=== PATIENT | female | born 1965 | race African-American/Black ===

== ENCOUNTER 2018-07-11 14:30 | Emergency (ER) | payer SELFPAY ==
[2018-07-11 14:35] VITALS: TEMP 98.9; BMI 27.4
--- NOTE | 2018-07-11 14:47 | PDOC ---
Attending Attestation - HPI HPI: 07/11/18 16:08 The patient is a 53-year-old female with a past medical history significant for HTN and Pre-DM presents to the emergency department with abdominal pain. The patient presents with left sided abdominal pain for the past 2 hours, thats bloating in quality. The patient denies any modifying factor that aggravates or alleviates the pain. The patient reports associated symptoms of nausea and 2 episodes of NBNB vomiting and urinary frequency. The patient reports she had a bowel movement earlier today, denies melena or hematochezia. Denies fever, chills, chest pain, shortness of breath, dysuria, hematuria. Allergies: NKA Social history: No tobacco or recreational drug use reported. Occasional alcohol use reported Surgical history: None recorded. PCP: Not on Staff - Physicial Exam PE: 07/11/18 15:33 GENERAL: Awake, alert, and fully oriented, in no acute distress, appears mildly uncomfortable. ABDOMEN: + mild tenderness to deep palpation of the LUQ. Soft, No guarding, no rebound. No masses - Medical Decision Making 07/11/18 15:34 Documentation prepared by Marika Valentino, acting as medical center representative for Destini Carrion MD. <Marika Valentino - Last Filed: 07/11/18 16:08> - Medical Decision Making 07/11/18 16:12 Pt presents to the ED complaining of the acute onset of L sided abdominal pain two hours ago. very mild tenderness to deep palpation in the LUQ. Will check labs to investigate for UTI, or other systemic infection, pancreatitis, billiary disease. Will treat pain with IV tylelenol. Will consider imaging if pain is intractable or if labs are abnormal. <Destini Carrion - Last Filed: 07/11/18 16:14>
--- NOTE | 2018-07-11 14:50 | PDOC ---
History of Present Illness - General Chief Complaint: Pain Stated Complaint: PAIN Time Seen by Provider: 07/11/18 14:47 - History of Present Illness Initial Comments: Rell Velasquez is a 53yo woman with a PMH of HTN and prediabetes who presents with LLQ abdominal pain that started earlier today. She describes her pain as a 7/10 "bloating" pain. It does not radiate. She initially thought it might be gas and tried drinking tea and taking a hot shower without any relief. She did not take any pain medication. She denies any associated diarrhea, constipation, fever, chills, SOB, or chest pain. Since arrival in the ED, she has had some nausea and an episode of vomiting, but she was eating and drinking without any difficulty yesterday until breakfast this morning. On additional questioning, she endorses urinary urgency for multiple days. She feels that she needs to run to the bathroom but is unable to urinate. She has not had any dysuria or hematuria. She has not had any vaginal bleeding or discharge. She reports that she is in early menopause; her LMP was in March. She has no history of abdominal surgery, kidney stone, recent travel, or new/ unusual foods. Ms Velasquez reports a nearly identical episode with pain on the right side one month ago. She saw several physicians including GI, and workup including an abdominal ultrasound was apparently negative for abnormalities at that time. She decided to present to the ED immediate after the pain occurred this morning so that she could be evaluated while the pain was present. Past History - Past Medical History Allergies/Adverse Reactions: Allergies Allergy/AdvReac Type Severity Reaction Status Date / Time No Known Allergies Allergy Verified 07/11/18 15:01 Home Medications: Ambulatory Orders Amlodipine Besylate [Norvasc -] 5 mg PO DAILY #7 tablet 04/03/14 COPD: No HTN: Yes - Immunization History Immunization Up to Date: No - Suicide/Smoking/Psychosocial Hx Smoking History: Never smoked Have you smoked in the past 12 months: No Hx Alcohol Use: Yes (Occasional) Substance Use Type: Alcohol Review of Systems - Review of Systems Comments:: General: No fevers, no chills, no weight or appetite change, no malaise HEENT: No changes in vision, no changes in hearing, no congestion, no sore throat CV: No chest pain, no palpitations, no LE edema Pulm: No SOB, no cough, no wheezing GI: No change in bowel habits, no melena. +1x episode of vomiting today. +LLQ pain : +Frequency, +urgency. No dysuria, no hematuria. Post/holden menopausal Musc: No back pain, no joint swelling, no recent injury Skin: No rash, no lesions, no erythema Endo: No excessive thirst, no heat/cold intolerance Heme: No unusual bruising or bleeding, no swollen glands Neuro: No syncope, no numbness/tingling, no focal weakness Vasc: No claudication Psych: No recent change in mood, no SI or HI *Physical Exam - Vital Signs Last Vital Signs Temp Pulse Resp BP Pulse Ox 98.9 F 86 18 140/67 100 07/11/18 14:33 07/11/18 14:33 07/11/18 14:33 07/11/18 14:33 07/11/18 14:33 - Physical Exam Comments: General: Uncomfortable but in no acute distress HEENT: PERRL, EOMI, MMM, voice normal Cards: RRR, no murmur appreciated Pulm: Comfortable on room air, clear to auscultation bilaterally Abd: Soft, nondistended. No tenderness to palpation or percussion. No rigidity, guarding or peritoneal signs. Bowel sounds present. : No CVA tenderness Ext: Atraumatic. No LE edema. ROM intact. Strength 5/5 and equal bilaterally Vasc: Extremities WWP. Skin: Normal color, no rashes or lesions Neuro: A&Ox3, CN grossly intact, normal speech, motor/sensory grossly intact and symmetric Psych: Mood appropriate to situation ED Treatment Course - LABORATORY CBC & Chemistry Diagram: 07/11/18 15:52 07/11/18 15:52 Medical Decision Making - Medical Decision Making 07/11/18 15:27 Rell Velasquez is a 53yo woman who presents with LLQ abdominal pain that started this morning. She also reports urinary frequency for a few days as well as nausea with one episode of vomiting today. She had a similar episode with pain on the right side one month ago; per Ms Velasquez, workup at that time including imaging was negative. - Abdominal exam is benign with no distension, TTP or peritoneal signs. No infectious symptoms, travel or sick contacts suggesting gastroenteritis - Does endorse urinary urgency and frequency - UA, UCx to check for UTI. LMP in March, believes that she is menopausal. Urine preg ordered to confirm. - CBC, CMP, lipase ordered to evaluate for abnormalities - IV tylenol for pain - Consider imaging if pain persists or abnormalities are noted on labs 07/11/18 17:06 - UA with blood, RBCs, WBCs. Negative leuk esterase, negative nitrites. Suggestive of possible kidney stone given clinical picture w/ one-sided low abdominal v pelvic pain. Abd/pelvis CT w/o contrast ordered - CMP unremarkable. CBC pending - Pain improved following acetaminophen 07/11/18 18:19 - CBC without abnormalities - CT abd/pelvis with 3mm stone in the bladder. Left perinephric and periureteral stranding without hydro. - Pain is most likely due to a left sided kidney stone - Discussed stone, pain control with OTC analgesics, return precautions, and need for PMD follow-up with the patient. She understands and agrees. - Discharge home. Seen and discussed with Dr Carrion and Dr Hanson. Cecilia Andujar PGY1 *DC/Admit/Observation/Transfer Diagnosis at time of Disposition: Kidney stone on left side - Discharge Dispostion Disposition: HOME Condition at time of disposition: Stable Decision to Admit order: No - Referrals Referrals: Yusuf Reynolds MD [Staff Physician] - - Patient Instructions Printed Discharge Instructions: DI for Kidney Stones Additional Instructions: Discharge Instructions: - You were seen in the ED for left-sided abdominal pain - Your blood tests were all normal, but your urine test showed blood called hematuria. - A CT scan was completed showing a recently passed kidney stone in the bladder. This is most likely the cause of your pain - Use acetaminophen (Tylenol) or ibuprofen (Advil, Motrin) for pain - Try to stay hydrated - Follow up with your primary physician within the next 1 week. You have been referred to the resident clinic with Dr Reynolds if you need to establish care with a primary physician. - Return to the ED if you have severe abdominal pain that does not improve, if you have nausea/vomiting that prevents you from eating or drinking, or if you have obviously bloody urine. - Post Discharge Activity
[2018-07-11] MEDS ORDERED: ACETAMINOPHEN 500 MG TABLET (FP) PO ONE (15:07)
[2018-07-11] MEDS ORDERED: ACETAMINOPHEN 1000 MG/100 ML VIAL (NON FORMULARY) IVPB ONE (15:28)
[2018-07-11] MEDS ORDERED: ACETAMINOPHEN INJECTION 100 ML IVPB ONE (15:28)
[2018-07-11 15:55] LABS: URINE APPEARANCE CLOUDY; URINE BILIRUBIN NEGATIVE (<2.0 mg/dL); URINE COLOR LTYELLOW; URINE GLUCOSE (UA) NEGATIVE (NEGATIVE); URINE KETONE NEGATIVE (NEGATIVE); URINE LEUK ESTERASE NEGATIVE (NEGATIVE); URINE NITRITE NEGATIVE (NEGATIVE); URINE PROTEIN NEGATIVE (NEGATIVE); URINE UROBILINOGEN NEGATIVE mg/dL (0.2-1.0)
[2018-07-11 16:32] LABS: ALK PHOS 83 U/L (45-117); BILIRUBIN,TOTAL 0.3 mg/dL (0.2-1); BLOOD UREA NITROGEN 16 mg/dL (7-18); CALCIUM 9.3 mg/dL (8.5-10.1); CHLORIDE 107 mmol/L (98-107); CO2 28 mmol/L (21-32); CREATININE 0.9 mg/dL (0.55-1.3); GLUCOSE,RANDOM 118 mg/dL (74-106); LIPASE 125 U/L (73-393); SGPT/ALT 14 U/L (13-61); SODIUM 141 mmol/L (136-145); TOT PROT 7.7 g/dl (6.4-8.2)
[2018-07-11 16:33] LABS: ANION GAP 7 MMOL/L (8-16); POTASSIUM 4.4 mmol/L (3.5-5.1); SGOT/AST 23 U/L (15-37)
[2018-07-11 16:35] LABS: EPI CELLS RARE /HPF (FEW); URINE MUCUS RARE
[2018-07-11 17:48] LABS: BASO % 0.2 % (0-2.0); EOS % 0.1 % (0-4.5); HEMATOCRIT 37.5 % (32.4-45.2); HEMOGLOBIN 11.9 GM/dL (10.7-15.3); LYMPH % 14.8 % (8-40); MCH 27.4 pg (25.7-33.7); MCHC 31.7 g/dl (32.0-36.0); MEAN CELL VOLUME 86.5 fl (80-96); MEAN PLT VOLUME 8.4 fl (7.5-11.1); MONO % 4.9 % (3.8-10.2); PLATELET COUNT 225 K/MM3 (134-434); RBC 4.33 M/mm3 (3.60-5.2); RDW 14.4 % (11.6-15.6); WHITE BLOOD COUNT 6.8 K/mm3 (4.0-10.0)
[2018-07-11 18:40] VITALS: BP 143/89; PULSE 80
== END 2018-07-11 18:41 | disposition home or self-care (01) ==
LOC: JER 14:30
PROC: 3E033NZ Introduction of Analgesics, Hypnotics, Sedatives into Peripheral Vein, Percutaneous Approach (ICD-10-PCS; principal; 2018-07-11)
DX: N20.0 Calculus of kidney (principal); I10 Essential (primary) hypertension; R73.03 Prediabetes
CPT/HCPCS: 36415; 74176-TC; 80053; 81003; 81015; 83690; 84703; 85025; 87086; 99283-25; J0131